=== PATIENT | female | born 1970 ===

== ENCOUNTER 2020-11-12 03:30 | Inpatient (IN) ==
[2020-11-12 04:02] LABS: Basophils # 0.1 10*3/uL (0.0-0.2); Basophils % 0.5 % (0.0-0.8); Eosinophils # 0.2 10*3/uL (0.0-0.87); Eosinophils % 1.6 % (0.00-10.9); Hematocrit 33.1 VOL% (35.7-47.0); Hemoglobin 11.1 GM/DL (12.0-16.0); Immature Granulocytes % 0.6 %; Immature Granulocytes Absolute 0.06 #; Lymphocytes # 1.2 10*3/uL (1.4-4.0); Mean Corpuscular HGB Conc 33.5 GM/DL (32-36); Mean Corpuscular Volume 98.2 FL (87-102); Mean Platelet Volume 10.1 FL (9.6-12.0); Monocytes % 6.1 % (1.7-12.7); Neutrophils % 79.2 % (38.7-73.9); Platelet Count 150 T/CUMM (130-400); Red Blood Count 3.37 MC/CUMM (3.8-5.5); Red Cell Distribution Width 12.3 % (9.3-17.3); White Blood Count 9.8 T/CUMM (4-12)
[2020-11-12 04:12] LABS: PT Patient Result 11.7 SECS (10.5-12.0); Partial Thromboplastin Time 24.4 SECS (23.9-33.8)
[2020-11-12 04:20] LABS: Alanine Aminotransferase 32 U/L (13-56); Alkaline Phosphatase 99 U/L (45-117); Amylase 62 U/L (25-115); Aspartate Amino Transferase 43 U/L (0-37); Blood Urea Nitrogen 13 MG/DL (7-18); Calcium 8.4 MG/DL (8.5-10.1); Carbon Dioxide 23 MMOL/L (21-32); Estimated Glom Filtration Rate 81 ML/MIN; Glucose 216 MG/DL (74-106); Osmolality,Calculated 276.1 MOS/KG (273-304); Potassium 3.6 MMOL/L (3.5-5.1); Sodium 135 MMOL/L (136-145); Total Protein 7.4 G/DL (6.4-8.2)
[2020-11-12 04:29] LABS: Bacteria,Urine Occasional /HPF (Few); Bilirubin,Urine Negative (Negative); Blood, Urine Negative (Negative); Glucose,Urine (UA) 50 mg/dL (Negative); Ketones,Urine Negative (Negative); Mucus,Urine Occasional /LPF (Occasional); Nitrite,Urine Negative (Negative); Protein,Urine Negative; RBC,Urine <1 /HPF (0-4); Squamous Epithelial Cell,Urine Occasional /HPF (0-10); Urine Appearance CLEAR (Clear); Urine Color Yellow (Yellow); Urine Specific Gravity 1.036 (1.001-1.035); Urine Urobilinogen < 2.0 EU/DL (0.2-1.0)
[2020-11-12 04:35] LABS: Barbiturates Screen,Urine Negative (Negative); Benzodiazepines Screen,Urine Negative (Negative); Cannabinoid Screen,Urine Negative (Negative); Opiate Screen,Urine Negative (Negative); Phencyclidine Screen,Urine Negative (Negative)
[2020-11-12] MEDS ORDERED: SODIUM CHLORIDE 0.9% 1,000 ML IV STA (04:48)
[2020-11-12] MEDS ORDERED: ACETAMINOPHEN 325 MG TABLET PO PRN (05:40)
[2020-11-12] MEDS ORDERED: ONDANSETRON 4 MG/2 ML VIAL IV PRN (05:40)
[2020-11-12] MEDS: DEXTROSE 5% NACL 0.45% 1,000 ML IV SCH ×2 (08:25→17:36)
[2020-11-12] MEDS: PANTOPRAZOLE 40 MG VIAL IV SCH (08:26)
[2020-11-12] MEDS: MORPHINE 4 MG/1 ML VIAL IV PRN ×4 (08:28→21:27)
[2020-11-12] MEDS ORDERED: DEXTROSE 50% 25 GM/50 ML VIAL IV PRN (10:06)
[2020-11-12] MEDS ORDERED: DOCUSATE SODIUM 100 MG CAPSULE PO PRN (10:06)
[2020-11-12] MEDS ORDERED: GLUCAGON 1 MG VIAL IM PRN (10:06)
[2020-11-12] MEDS ORDERED: hydrALAZINE 20 MG/1 ML VIAL IV PRN (10:06)
[2020-11-12] MEDS: INSULIN REGULAR 100 UNIT/ML SUBCUT SCH ×3 (12:17→21:26)
[2020-11-12] MEDS: THIAMINE 100 MG TABLET PO SCH (21:26)
[2020-11-12] MEDS: FOLIC ACID 1 MG TABLET PO SCH (21:26)
[2020-11-13] MEDS: DEXTROSE 5% NACL 0.45% 1,000 ML IV SCH ×3 (02:22→12:40)
[2020-11-13] MEDS: MORPHINE 4 MG/1 ML VIAL IV PRN ×2 (02:22→20:55)
[2020-11-13 05:26] LABS: Basophils % 0.6 % (0.0-0.8); Eosinophils # 0.3 10*3/uL (0.0-0.87); Eosinophils % 5.9 % (0.00-10.9); Hematocrit 26.3 VOL% (35.7-47.0); Immature Granulocytes % 0.7 %; Immature Granulocytes Absolute 0.04 #; Lymphocytes # 1.5 10*3/uL (1.4-4.0); Lymphocytes % 27.6 % (21.3-54.2); Mean Corpuscular HGB Conc 33.5 GM/DL (32-36); Mean Corpuscular Volume 97.8 FL (87-102); Mean Platelet Volume 10.1 FL (9.6-12.0); Monocytes % 9.6 % (1.7-12.7); Neutrophils % 55.6 % (38.7-73.9)
[2020-11-13 05:31] LABS: Hemoglobin 8.8 GM/DL (12.0-16.0); Platelet Count 113 T/CUMM (130-400); Red Blood Count 2.69 MC/CUMM (3.8-5.5); White Blood Count 5.4 T/CUMM (4-12)
[2020-11-13 05:46] LABS: Calcium 7.5 MG/DL (8.5-10.1); Osmolality,Calculated 274.7 MOS/KG (273-304); Potassium 3.3 MMOL/L (3.5-5.1)
[2020-11-13 05:46] LABS: Hypochromasia 1+; Microcytosis 1+; Platelet Estimate Decreased
[2020-11-13] MEDS ORDERED: CLINDAMYCIN INJ 900 MG/50 ML PREMIX IV ONE (06:30)
[2020-11-13] MEDS ORDERED: LORazepam 2 MG/1 ML VIAL IV PRN (07:47)
[2020-11-13] MEDS: PANTOPRAZOLE 40 MG VIAL IV SCH (08:49)
[2020-11-13] MEDS: INSULIN REGULAR 100 UNIT/ML SUBCUT SCH ×4 (08:49→20:56)
[2020-11-13] MEDS: THIAMINE 100 MG TABLET PO SCH ×2 (08:51→20:54)
[2020-11-13] MEDS: chlordiazePOXIDE 25 MG CAPSULE PO SCH ×3 (08:57→20:54)
[2020-11-13] MEDS: NICOTINE 21 MG/24 HR PATCH TRANSDERM SCH (09:36)
[2020-11-13] MEDS ORDERED: fentaNYL 100 MCG/2 ML VIAL ONE (10:03)
[2020-11-13] MEDS ORDERED: MIDAZOLAM 2 MG/2 ML VIAL ONE (10:03)
[2020-11-13] MEDS ORDERED: BUPIVACAINE MPF 0.25% 30 ML VIAL ONE (10:06)
[2020-11-13] MEDS ORDERED: DEXAMETHASONE 4 MG/1 ML VIAL ONE (10:06)
[2020-11-13] MEDS ORDERED: LACTATED RINGERS 1,000 ML IV SCH (10:30)
[2020-11-13] MEDS ORDERED: ePHEDrine 50 MG/ML VIAL ONE (11:08)
[2020-11-13] MEDS ORDERED: SEVOFLURANE 1 UNIT/15 MINUTE INH ONE ×3 (11:10→11:47)
[2020-11-13] MEDS ORDERED: SUCCINYLCHOLINE 200 MG/10 ML VIAL ONE (11:10)
[2020-11-13] MEDS ORDERED: PHENYLEPHRINE 1 MG/10 ML SYRINGE IV ONE (11:10)
[2020-11-13] MEDS ORDERED: ONDANSETRON 4 MG/2 ML VIAL ONE (11:10)
[2020-11-13] MEDS ORDERED: LIDOCAINE 2% 5 ML VIAL ONE (11:10)
[2020-11-13] MEDS ORDERED: propofoL 200 MG/20 ML VIAL IV ONE (11:10)
[2020-11-13] MEDS ORDERED: MUPIROCIN 2% OINT 22 GM TUBE TOP ONE (11:42)
[2020-11-13] MEDS ORDERED: MAGNESIUM HYDROXIDE SUSP 30 ML UDCUP PO PRN (12:12)
[2020-11-13] MEDS ORDERED: MORPHINE 4 MG/1 ML VIAL IV PRN (12:12)
[2020-11-13 13:39] LABS: Hematocrit 28.4 VOL% (35.7-47.0); Hemoglobin 9.8 GM/DL (12.0-16.0)
[2020-11-13] MEDS ORDERED: POTASSIUM CHLORIDE 20 MEQ TABLET PO PRN (14:54)
[2020-11-13] MEDS: LACTATED RINGERS 1,000 ML IV SCH (17:30)
[2020-11-13] MEDS: ENOXAPARIN 40 MG/0.4 ML SYRINGE SUBCUT SCH (17:31)
[2020-11-13] MEDS: FOLIC ACID 1 MG TABLET PO SCH (20:54)
[2020-11-14] MEDS: chlordiazePOXIDE 25 MG CAPSULE PO SCH ×4 (02:05→23:40)
[2020-11-14] MEDS: LACTATED RINGERS 1,000 ML IV SCH ×2 (03:53→15:25)
[2020-11-14 05:18] LABS: Basophils % 0.3 % (0.0-0.8); Hematocrit 26.1 VOL% (35.7-47.0); Hemoglobin 8.8 GM/DL (12.0-16.0); Immature Granulocytes % 0.5 %; Immature Granulocytes Absolute 0.05 #; Lymphocytes # 1.2 10*3/uL (1.4-4.0); Lymphocytes % 12.6 % (21.3-54.2); Mean Corpuscular HGB Conc 33.7 GM/DL (32-36); Mean Platelet Volume 10.8 FL (9.6-12.0); Monocytes % 10.8 % (1.7-12.7); Neutrophils % 75.8 % (38.7-73.9); Platelet Count 115 T/CUMM (130-400); Red Blood Count 2.69 MC/CUMM (3.8-5.5); Red Cell Distribution Width 11.9 % (9.3-17.3); White Blood Count 9.9 T/CUMM (4-12)
[2020-11-14 05:39] LABS: Albumin 2.3 G/DL (3.4-5.0); Bilirubin,Total 0.5 MG/DL (0.2-1.0); Calcium 7.9 MG/DL (8.5-10.1); Osmolality,Calculated 280.8 MOS/KG (273-304); Potassium 3.6 MMOL/L (3.5-5.1); Total Protein 6.2 G/DL (6.4-8.2)
[2020-11-14] MEDS: INSULIN REGULAR 100 UNIT/ML SUBCUT SCH ×2 (08:10→11:49)
[2020-11-14] MEDS: THIAMINE 100 MG TABLET PO SCH ×2 (08:12→20:26)
[2020-11-14] MEDS: PANTOPRAZOLE 40 MG VIAL IV SCH (08:13)
[2020-11-14] MEDS: NICOTINE 21 MG/24 HR PATCH TRANSDERM SCH (08:14)
[2020-11-14] MEDS: MORPHINE 4 MG/1 ML VIAL IV PRN ×2 (11:53→20:27)
[2020-11-14] MEDS ORDERED: DEXTROSE 50% 25 GM/50 ML VIAL IV PRN (13:11)
[2020-11-14] MEDS: INSULIN LISPRO 100 UNIT/ML SUBCUT SCH ×2 (16:46→20:26)
[2020-11-14] MEDS: ENOXAPARIN 40 MG/0.4 ML SYRINGE SUBCUT SCH (16:47)
[2020-11-14] MEDS: FOLIC ACID 1 MG TABLET PO SCH (20:26)
[2020-11-14] MEDS ORDERED: INSULIN GLARGINE 100 UNIT/ML SUBCUT SCH (21:00)
[2020-11-15] MEDS: MORPHINE 4 MG/1 ML VIAL IV PRN (05:55)
[2020-11-15 05:57] LABS: Basophils % 0.4 % (0.0-0.8); Eosinophils # 0.1 10*3/uL (0.0-0.87); Eosinophils % 1.5 % (0.00-10.9); Hematocrit 27.1 VOL% (35.7-47.0); Hemoglobin 9.1 GM/DL (12.0-16.0); Immature Granulocytes Absolute 0.09 #; Lymphocytes # 2.1 10*3/uL (1.4-4.0); Lymphocytes % 22.4 % (21.3-54.2); Mean Corpuscular HGB Conc 33.6 GM/DL (32-36); Mean Corpuscular Volume 97.1 FL (87-102); Mean Platelet Volume 10.5 FL (9.6-12.0); Monocytes % 8.3 % (1.7-12.7); Neutrophils % 66.4 % (38.7-73.9); Platelet Count 137 T/CUMM (130-400); Red Blood Count 2.79 MC/CUMM (3.8-5.5); Red Cell Distribution Width 11.9 % (9.3-17.3); White Blood Count 9.4 T/CUMM (4-12)
[2020-11-15 06:07] LABS: Osmolality,Calculated 275.1 MOS/KG (273-304); Potassium 3.6 MMOL/L (3.5-5.1)
[2020-11-15 06:28] LABS: Hypochromasia 1+; Microcytosis 1+; Platelet Estimate Adequate
[2020-11-15] MEDS: PANTOPRAZOLE 40 MG VIAL IV SCH (09:13)
[2020-11-15] MEDS: THIAMINE 100 MG TABLET PO SCH (09:13)
[2020-11-15] MEDS: chlordiazePOXIDE 25 MG CAPSULE PO SCH ×2 (09:13→18:30)
[2020-11-15] MEDS: NICOTINE 21 MG/24 HR PATCH TRANSDERM SCH (09:13)
[2020-11-15] MEDS: INSULIN LISPRO 100 UNIT/ML SUBCUT SCH ×3 (09:17→18:29)
[2020-11-15] MEDS: LACTATED RINGERS 1,000 ML IV SCH ×2 (09:17→18:27)
[2020-11-15 16:02] VITALS: BP 123/57
[2020-11-15] MEDS: ENOXAPARIN 40 MG/0.4 ML SYRINGE SUBCUT SCH (18:30)
== END 2020-11-15 19:45 | disposition home or self-care (01) | DRG 912 ==
LOC: N.ED 03:30 → N.EDINP 03:30 → N.5E 05:51
PROVIDERS: ADMIT Surgery; ATTEND Surgery